=== PATIENT | male | born 1950 | race Caucasian/White ===

== ENCOUNTER 2022-09-04 09:16 | Emergency (ER) | payer OTHER ==
[~2022-09-04] VITALS: Ht 182.9 cm; Wt 81.6 kg
[2022-09-04] MEDS ORDERED: HYDROCHLOROTHIA50 MG (09:28)
[2022-09-04] MEDS ORDERED: ATORVASTATIN CA20 MG (09:29)
[2022-09-04] MEDS ORDERED: CYCLOBENZAPRINE10 MG PO (13:00)
[2022-09-04] MEDS ORDERED: DICLOFENAC POTA50 MG PO (13:00)
== END 2022-09-04 13:53 | disposition home or self-care (01) ==
LOC: ER 09:16
DX: M54.59 Other low back pain (principal); M62.830 Muscle spasm of back

== ENCOUNTER 2023-05-11 10:14 | Emergency (ER) | payer OTHER ==
[~2023-05-11] VITALS: Ht 182.9 cm; Wt 80.7 kg
[~2023-05-11 10:14] MED LIST: ATORVASTATIN CA20 MG; CYCLOBENZAPRINE10 MG PO; DICLOFENAC POTA50 MG PO; HYDROCHLOROTHIA50 MG
[2023-05-11] MEDS ORDERED: CRESTOR10 MG PO (10:38)
== END 2023-05-11 15:22 | disposition home or self-care (01) ==
LOC: ER 10:14
DX: H01.9 Unspecified inflammation of eyelid (principal)
CPT/HCPCS: 96372; 99282; J1100